=== PATIENT | female | born 1955 | race Caucasian/White ===

== ENCOUNTER 2018-08-26 08:02 | Outpatient (CLI) | payer OTHER ==
--- NOTE | 2018-08-26 09:49 | BD ---
BONE DENSITOMETRY: INDICATION: A 63-year-old female for postmenopausal osteoporosis screening. Lumbar Spine: BMD (g/cm2) L1 0.827 T-Score: -1.5 L2 0.806 T-Score: -2.0 L3 0.855 T-Score: -2.1 L4 0.782 T-Score: -2.5 L1-L4 0.818 T-Score: -2.1 Previous bone mineral density of the lumbar spine from 08/20/2018 revealed a total density of 0.853. Femoral Neck: 0.554 T-Score: -2.7 Total Femur: 0.633 T-Score: -2.5 Femoral neck density from 08/20/2017 recorded at 0.607. Impression: 1. Femoral neck continues to show density of osteoporosis. There has been continued bone mineral de nsity loss when compared to 2017 as noted above. 2. The lumbar spine density continues to show osteopenia with mild loss of density when compared to 2017 as noted above. POS: [facility]
== END 2018-08-26 08:03 | disposition home or self-care (01) ==
LOC: BICMAMMO 08:02
PROVIDERS: ATTEND Internal Medicine Rheumatology
DX: M80.00XS Age-related osteoporosis with current pathological fracture, unspecified site, sequela (principal); M85.88 Other specified disorders of bone density and structure, other site
CPT/HCPCS: 77080

== ENCOUNTER 2019-08-27 09:11 | Outpatient (CLI) | payer OTHER ==
--- NOTE | 2019-08-27 10:27 | BD ---
DEXA BONE DENSITY STUDY: Date: 08/27/19 HISTORY: Postmenopausal. FINDINGS: Lumbar Spine: BMD (g/cm2) L1 0.913 T-Score: -0.7 L2 0.924 T-Score: -0.9 L3 0.917 T-Score: -1.5 L4 0.831 T-Score: -2.1 Total 0.895 T-Score: -1.4 Left Femoral Neck: 0.588 T-Score: -2.3 Total Femur: 0.675 T-Score: -2.2 IMPRESSION: Osteopenia of the left femoral neck. Values border on the osteoporosis range and osteopenia of the [place] mbar spine. POS: [facility]
== END 2019-08-27 09:12 | disposition home or self-care (01) ==
LOC: BICMAMMO 09:11
PROVIDERS: ATTEND Internal Medicine
DX: M81.0 Age-related osteoporosis without current pathological fracture (principal); M85.852 Other specified disorders of bone density and structure, left thigh
CPT/HCPCS: 77080